=== PATIENT | female | born 1980 | race Caucasian/White ===

== ENCOUNTER 2018-04-21 09:18 | Emergency (ER) | payer MEDICAID ==
[~2018-04-21] VITALS: Ht 160 cm; Wt 88.5 kg
[2018-04-21 09:27] VITALS: Ht 160 cm; Wt 88.5 kg
[2018-04-21 11:57] VITALS: BP 125/75
== END 2018-04-21 11:57 | disposition home or self-care (01) ==
LOC: ED 09:18
DX: S01.01XD Laceration without foreign body of scalp, subsequent encounter (principal); X58.XXXD Exposure to other specified factors, subsequent encounter